=== PATIENT | male | born 1970 | race Caucasian/White ===

== ENCOUNTER 2020-07-07 03:46 | Emergency (ER) | payer BC ==
[~2020-07-07] VITALS: Ht 185.4 cm; Wt 97.3 kg
[2020-07-07 03:52] VITALS: Ht 185.4 cm; Wt 97.3 kg
[2020-07-07] MEDS ORDERED: COZAAR25 MG PO (03:53)
[2020-07-07] MEDS ORDERED: GLUCOPHAGE500 MG PO (03:53)
[2020-07-07 04:13] LABS: BASOPHILS 0.3 % (0-2); EOSINOPHILS 2.6 % (0-7); HEMATOCRIT 41.6 % (42.0-54.0); IMMATURE GRANULOCYTES 0.3 % (0-5); LYMPHOCYTE ABS# 2.93 10x3/uL (1.32-3.57); LYMPHOCYTES 32.6 % (15-50); MCH 30.6 pg (26.0-34.0); MCHC 33.7 g/dL (31.0-37.0); MEAN PLATELET VOLUME 9.6 fL (7.4-10.4); NEUTROPHIL ABS# 5.04 10x3/uL (1.78-5.38); NEUTROPHILS 56.2 % (40-80); PLATELET COUNT 208 10x3/uL (130-400); RBC 4.57 10x6/uL (4.20-6.10); RDW 12.6 % (11.5-14.5)
[2020-07-07 04:17] LABS: CALC OSMOLALITY 273 mosm/kg (275-300); CALCIUM 9.1 mg/dL (8.5-10.1); CARBON DIOXIDE 28.6 mmol/L (21.0-32.0); CHLORIDE - SERUM 99 mmol/L (98-107); GLUCOSE 126 mg/dL (74-106); POTASSIUM - SERUM 3.1 mmol/L (3.5-5.1); SODIUM 137 mmol/L (136-145); UREA NITROGEN 6 mg/dL (7-18); eGFR NON AFRICAN AMERICAN 84 mL/min (90-120)
[2020-07-07 04:24] LABS: BILIRUBIN NEGATIVE (NEGATIVE); KETONE NEGATIVE (NEGATIVE); NITRITE NEGATIVE (NEGATIVE); UROBILINOGEN NORMAL mg/dL (< 2)
[2020-07-07 04:26] LABS: ALBUMIN 3.9 g/dL (3.4-5.0); ALKALINE PHOSPHATASE 66 U/L (30-120); ALT (SGPT) 26 U/L (10-68); BILIRUBIN - TOTAL 0.51 mg/dL (0.2-1.3); LIPASE 193 U/L (73-393); PROTEIN - SERUM 7.8 g/dL (6.4-8.2)
[2020-07-07 04:29] LABS: C-REACTIVE PROTEIN < 0.2 mg/dL (0.0-0.9); TROPONIN-I < 0.017 ng/mL (0.000-0.060)
[2020-07-07] MEDS ORDERED: MIRALAX17 GM PO (06:09)
[2020-07-07] MEDS ORDERED: COLACE100 MG PO (06:09)
[2020-07-07 06:15] VITALS: BP 132/81
== END 2020-07-07 06:16 | disposition home or self-care (01) ==
LOC: D.ER 03:46
PROVIDERS: Family Medicine
DX: R10.9 Unspecified abdominal pain (principal); R11.10 Vomiting, unspecified